=== PATIENT | male | born 1945 ===

== ENCOUNTER 2021-05-30 14:00 | Outpatient (CLI) | payer OTHER ==
[~2021-05-30 14:00] MED LIST: CATAFLAM50 MG PO; CIPRO500 MG PO; PERCOCET 5/321 UDTAB PO; POLY119PG PO; RECTICARE30 GM TP
== END 2021-05-30 14:30 | disposition home or self-care (01) ==
LOC: ASH CLINIC 14:00
DX: U07.1 COVID-19 (principal); Z23 Encounter for immunization